=== PATIENT | female | born 1945 | race Caucasian/White ===

== ENCOUNTER 2021-11-22 16:35 | Observation (INO) ==
[2021-11-22] MEDS ORDERED: PROVENTIL NEB TX 0.083% 2.5MG/ 3ML NEB PRN (19:12)
[2021-11-22] MEDS ORDERED: ROCEPHIN 1 GRAM IV PREMIX 1 G/50 ML IV.SOLN. IV SCH (20:00)
[2021-11-22] MEDS: NS 1,000 ML IV 1,000 ML IV SCH (20:12)
[2021-11-22] MEDS: ZITHROMAX INJ 500 MG VIAL 500 MG in NS 250 ML IV 250 ML IV SCH (20:12)
[2021-11-22] MEDS: SOLU-Medrol 40 MG VIAL IVP SCH (20:12)
[2021-11-22 20:16] LABS: ABG BASE EXCESS 2.5 mmol/L (-2.0-2.0); ABG HCO3 26.3 mmol/L (22-26)
[2021-11-22 20:23] LABS: BASOPHILS # (AUTO) 0.1 X10^3/uL (0.0-0.1); EOSINOPHILS # (AUTO) 0.4 x10^3/uL (0.0-0.2); EOSINOPHILS % (AUTO) 3.6 % (0.9-2.9); HEMATOCRIT 41.2 % (36.0-47.0); LYMPHOCYTES # (AUTO) 3.3 X10^3/uL (1.3-2.9); LYMPHOCYTES % (AUTO) 29.5 % (21.0-51.0); MEAN CORPUSCULAR HEMOGLOBIN 29.9 pg (27.0-34.0); MEAN CORPUSCULAR VOLUME 88.1 fL (80.0-100.0); MEAN PLATELET VOLUME 7.5 fL (7.4-11.0); MONOCYTES % (AUTO) 9.1 % (0.0-13.0); NEUTROPHILS # (AUTO) 6.3 x10^3/uL (2.2-4.8); NEUTROPHILS % (AUTO) 56.8 % (42.0-75.0); RED BLOOD COUNT 4.67 X10^6/uL (3.5-5.4); RED CELL DISTRIBUTION WIDTH 14.5 % (11.6-16.5); WHITE BLOOD COUNT 11.1 X10^3/uL (3.6-10.0)
[2021-11-22 20:27] VITALS: BMI 30.8
[2021-11-22] MEDS ORDERED: SALINE 3% 15 ML NEB TX NEB ONE (20:27)
[2021-11-22 20:29] LABS: BLOOD UREA NITROGEN 27 mg/dL (7-18); CALCIUM 9.2 mg/dL (8.5-10.1); CARBON DIOXIDE 26.7 mmol/L (21-32); CHLORIDE 101 mmol/L (98-107); COR NA(FOR HYPERGLY) 138 mmol/L (136-145); CREATININE 0.97 mg/dL (0.55-1.02); SODIUM 138 mmol/L (136-145); eGFR NON BLACK RACES 59 (>60)
[2021-11-22] MEDS ORDERED: SALINE 3% 15 ML NEB TX ONE (20:30)
[2021-11-22 20:41] LABS: ALANINE AMINOTRANSFERASE 35 Units/L (12-78); ALBUMIN 3.8 g/dL (3.4-5.0); ALKALINE PHOSPHATASE 58 Units/L (46-116); ASPARTATE AMINO TRANSFERASE 26 Units/L (15-37)
[2021-11-22] MEDS: PROVENTIL NEB TX 0.083% 2.5MG/ 3ML NEB SCH (20:55)
--- NOTE | 2021-11-22 21:35 | RAD ---
CHEST, 1 VIEWHISTORY: PNEUMONIAStudy: AP view of the chest.Comparison:NoneFindings:The cardiomediastinal silhouette is normal. Nodular cluster of opacifications in the right midlung which may be calcified. Osseous structures demonstrate no acute abnormality. Bilateral hyperexpansion and interstitial prominence.IMPRESSION:1. Possible calcified lung nodules in the right. This may represent evidence of prior granulomatous disease however that this could be confirmed by CT if clinically indicated.2. Findings of COPD.Electronically signed by: ARMANDO OSCAR (Nov 22, 2021 21:34:33)
[2021-11-22] MEDS: ROCEPHIN VIAL 1 GRAM 1 G in NS 100 ML IV 100 ML IV SCH (22:00)
[2021-11-23] MEDS: PROVENTIL NEB TX 0.083% 2.5MG/ 3ML NEB SCH ×4 (00:31→17:31)
[2021-11-23 04:31] LABS: BASOPHILS % (AUTO) 0.4 % (0.2-1.0); EOSINOPHILS # (AUTO) 0.1 x10^3/uL (0.0-0.2); EOSINOPHILS % (AUTO) 0.6 % (0.9-2.9); HEMATOCRIT 39.9 % (36.0-47.0); HEMOGLOBIN 13.6 g/dL (12.0-16.0); LYMPHOCYTES # (AUTO) 1.6 X10^3/uL (1.3-2.9); LYMPHOCYTES % (AUTO) 16.9 % (21.0-51.0); MEAN CORPUSCULAR HEMOGLOBIN 29.9 pg (27.0-34.0); MEAN CORPUSCULAR HGB CONC 33.9 g/dL (33.0-35.0); MEAN CORPUSCULAR VOLUME 88.1 fL (80.0-100.0); MEAN PLATELET VOLUME 7.5 fL (7.4-11.0); MONOCYTES # (AUTO) 0.2 x10^3/uL (0.3-0.8); NEUTROPHILS # (AUTO) 7.8 x10^3/uL (2.2-4.8); NEUTROPHILS % (AUTO) 80.1 % (42.0-75.0); RED BLOOD COUNT 4.54 X10^6/uL (3.5-5.4); RED CELL DISTRIBUTION WIDTH 14.6 % (11.6-16.5); WHITE BLOOD COUNT 9.7 X10^3/uL (3.6-10.0)
[2021-11-23 04:42] LABS: ALANINE AMINOTRANSFERASE 32 Units/L (12-78); ALBUMIN 3.4 g/dL (3.4-5.0); ALKALINE PHOSPHATASE 55 Units/L (46-116); ASPARTATE AMINO TRANSFERASE 27 Units/L (15-37); BLOOD UREA NITROGEN 24 mg/dL (7-18); CALCIUM 8.5 mg/dL (8.5-10.1); CARBON DIOXIDE 25.6 mmol/L (21-32); CHLORIDE 100 mmol/L (98-107); COR NA(FOR HYPERGLY) 137 mmol/L (136-145); CREATININE 0.88 mg/dL (0.55-1.02); SODIUM 135 mmol/L (136-145); TOTAL PROTEIN 7.6 g/dL (6.4-8.2); eGFR NON BLACK RACES > 60 (>60)
[2021-11-23] MEDS: SOLU-Medrol 40 MG VIAL IVP SCH ×2 (05:32→13:57)
[2021-11-23] MEDS ORDERED: KLOR-CON PO PRN (05:50)
[2021-11-23] MEDS ORDERED: POTASSIUM CHL 60 MEQ/NS 0.45% 500 ML IV PRN (05:50)
[2021-11-23] MEDS ORDERED: POTASSIUM CHLORIDE LIQ 20 MEQ UDC PO PRN (05:50)
[2021-11-23] MEDS ORDERED: POTASSIUM CHL 40 MEQ/NS 0.45% 500 ML IV PRN (05:50)
[2021-11-23] MEDS ORDERED: MICRO K EXTEN CAP 10 MEQ PO PRN (05:50)
[2021-11-23] MEDS ORDERED: K-RIDER 10 MEQ/NS 100 ML 10 MEQ/100 ML BAG IV PRN (05:50)
[2021-11-23] MEDS: K-DUR TAB 20 MEQ PO PRN (06:24)
[2021-11-23] MEDS: LOVENOX INJ 40 MG SYR SC SCH (10:34)
[2021-11-23] MEDS ORDERED: TESSALON PERLES PO PRN (15:57)
[2021-11-23] MEDS ORDERED: PATIENT'S HOME MEDICATION (Dulaglutide [Trulicity] 1.5 mg/0.5 mL Pen Injector) SUBCUT SCH (16:00)
[2021-11-23] MEDS ORDERED: ALENDRONATE 70 MG PO SCH (16:00)
[2021-11-23] MEDS ORDERED: VITAMIN D (1.25MG) PO SCH (16:15)
[2021-11-23] MEDS: PLAVIX PO SCH (16:42)
[2021-11-23] MEDS: NS 1,000 ML IV 1,000 ML IV SCH ×2 (17:08→18:04)
--- NOTE | 2021-11-23 17:18 | DR.H&P ---
H&P - History & Physical for Day of: H&P Date: 11/22/21 - Chief Complaint Chief Complaint: SOB, pneumonia - History of Present Illness History of Present Illness: Patient is a 76 year old WF who is a direct admit from Dr. George office due to dyspnea and pneumonia. Patient reports she had an outpatient CXR at PCP office which revealed pneumonia. Reports dyspnea and cough for several days. Denies CP, fever, chills. Reports her spouse has been sick as well with similar issues. PMH CAD with stent, hypothyroidism, HTN, history of breast cancer (remission) and multiple other conditions. - Past Medical History Past Medical History: Coronary Artery Disease, Hypertension, Hypothyroidism - Past Surgical History Surgical History: CABG/Valve Surgery, Mastectomy - Family History Family Medical History: Diabetes Mellitus, Coronary Artery Disease - Social History Does patient currently use any type of tobacco product: No Have you used tobacco products in the last 12 months: No Type of Tobacco Use: None Does any household member use tobacco: No Alcohol Use: None Drug Use: None - Medications Home Medications: BIANCA Inhibitors Allergy (Verified 11/22/21 19:53) codeine Allergy (Verified 11/22/21 19:53) hydralazine Allergy (Verified 11/22/21 19:53) macimorelin [From Macrilen] Allergy (Verified 11/22/21 19:53) morphine Allergy (Verified 11/22/21 19:46) Proton Pump Inhibitors Allergy (Verified 11/22/21 19:53) Sulfa (Sulfonamide Antibiotics) [SULFA] Allergy (Verified 11/22/21 19:53) CONTINUE taking the following medications albuterol sulfate 2.5 mg INHALATION TID 11/22/21 [History] alendronate 70 mg PO QWEEK 11/22/21 [History] aspirin 81 mg PO DAILY 11/22/21 [History] atorvastatin 40 mg PO QHS 11/22/21 [History] azithromycin See Rx Instructions .ROUTE .COMPLEX 11/22/21 [History] benzonatate 200 mg PO TID PRN 11/22/21 [History] blood sugar diagnostic [WiLinxTouch Verio test strips] 11/22/21 [History] clopidogrel 75 mg PO ONCE 11/22/21 [History] cyclosporine [Restasis] 1 drp OPHTHALMIC (EYE) BID 11/22/21 [History] dulaglutide [Trulicity] 1.5 mg SUBCUT QWEEK 11/22/21 [History] ergocalciferol (vitamin D2) [Vitamin D2] 50,000 unit PO WEEKLY 11/22/21 [History] fenofibrate 134 mg PO HS 11/22/21 [History] lancets [OneTouch Delica Plus Lancet] 11/22/21 [History] levothyroxine 25 mcg PO DAILY 11/22/21 [History] nifedipine 30 mg PO DIRECTED 11/22/21 [History] prednisone 20 mg PO DAILY 11/22/21 [History] sotalol 80 mg PO BID 11/22/21 [History] - Review of Systems Constitutional: See HPI Eyes: See HPI ENT: See HPI Respiratory: See HPI Cardiovascular: See HPI Gastrointestinal: See HPI Genitourinary: See HPI Musculoskeletal: See HPI Skin: See HPI Neurological: See HPI - Physical Exam Vital Signs: Temperature 97.9 F Pulse Rate [Left Brachial] 52 Pulse Rate 68 Respiratory Rate 20 Blood Pressure [Right Arm] 163/78 O2 Sat by Pulse Oximetry 96 Oriented: Normal Eyes: Other (Right eye injected with drainage noted) Ear: Normal Nose: Normal Throat: Red Respiratory: Rhonchi Throughout Cardiovascular: Murmur : Normal Auscultation: Bowel Sounds: Normal Palpation: Normal Tenderness: Normal Skin: Normal Musculoskeletal: Instability (Generalized global weakness) Psychiatric: Normal Mood Description: Calm Affect: Normal Speech Pattern: Clear, Appropriate - Assessment/Plan (1) Dyspnea Status: Acute (2) Acute bronchitis Status: Acute Plan: Admit. IV abx and steroids. Cultures. duo nebs. oxygen prn. imaging and labs as ordered (3) Acute bronchitis with COPD Status: Acute (4) Acute respiratory distress Status: Acute (5) History of coronary artery disease Status: Chronic Plan: home meds. Stable - Allergies Allergies/Adverse Reactions: Allergies Allergy/AdvReac Type Severity Reaction Status Date / Time BIANCA Inhibitors Allergy Verified 11/22/21 19:53 codeine Allergy Verified 11/22/21 19:53 hydralazine Allergy Verified 11/22/21 19:53 macimorelin [From Macrilen] Allergy Verified 11/22/21 19:53 morphine Allergy Verified 11/22/21 19:46 Proton Pump Inhibitors Allergy Verified 11/22/21 19:53 Sulfa (Sulfonamide Allergy Verified 11/22/21 19:53 Antibiotics) [SULFA]
--- NOTE | 2021-11-23 17:25 | PCM.PROG ---
Progress Note - Subjective Subjective: Patient is a 76 year old WF who was admitted as per HPI. Patient reports improvement in dyspnea and resp symptoms. Patient reports right eye itching and "feels like sand" in eye. Sclera is injected and small amount of drainage to right eye with crusting. Vitals, labs, and imaging reviewed. No new concerns at present. - Past Medical Family Social History Past Med/Fam/Surg Hx: No changes since H&P Allergies: Allergies BIANCA Inhibitors Allergy (Verified 11/22/21 19:53) codeine Allergy (Verified 11/22/21 19:53) hydralazine Allergy (Verified 11/22/21 19:53) macimorelin [From Macrilen] Allergy (Verified 11/22/21 19:53) morphine Allergy (Verified 11/22/21 19:46) Proton Pump Inhibitors Allergy (Verified 11/22/21 19:53) Sulfa (Sulfonamide Antibiotics) [SULFA] Allergy (Verified 11/22/21 19:53) - Review of Systems ROS: No change since H&P - Vital Signs and I&O's Vital Signs: Temperature 97.9 F Pulse Rate [Left Brachial] 52 Pulse Rate 68 Respiratory Rate 20 Blood Pressure [Right Arm] 163/78 O2 Sat by Pulse Oximetry 96 Intake and Output: Intake & Output 11/20/21 11/21/21 11/22/21 11/23/21 23:59 23:59 23:59 23:59 Intake Total 0 / 0 2671 / 2671 Balance 0 / 0 2671 / 2671 - Physical Exam Oriented: Normal Eyes: Other (Right eye injected with drainage noted) Ear: Normal Nose: Normal Throat: Red Respiratory: Rhonchi Cardiovascular: Murmur : Normal Auscultation: Bowel Sounds: Normal Palpation: Normal Tenderness: Normal Skin: Normal Musculoskeletal: Instability (Generalized global weakness) Psychiatric: Normal Mood Description: Calm Affect: Normal Speech Pattern: Clear, Appropriate - Laboratory and Diagnostics Result Diagrams: 11/23/21 03:28 11/23/21 07:27 Labs: 11/22/21 21:05 Sputum - Expectorated Sputum Sputum Culture - Preliminary 11/22/21 21:05 Sputum - Expectorated Sputum - Final Laboratory WBC 9.7 X10^3/uL (3.6-10.0) 11/23/21 03:28 RBC 4.54 X10^6/uL (3.5-5.4) 11/23/21 03:28 Hgb 13.6 g/dL (12.0-16.0) 11/23/21 03:28 Hct 39.9 % (36.0-47.0) 11/23/21 03:28 MCV 88.1 fL (80.0-100.0) 11/23/21 03:28 MCH 29.9 pg (27.0-34.0) 11/23/21 03: MCHC 33.9 g/dL (33.0-35.0) 11/23/21 03: RDW 14.6 % (11.6-16.5) 11/23/21 03: Plt Count 287 X10^3/uL (150.0-450.0) 11/23/21 03:28 MPV 7.5 fL (7.4-11.0) 11/23/21 03:28 Neut % (Auto) 80.1 % (42.0-75.0) H 11/23/21 03:28 Lymph % (Auto) 16.9 % (21.0-51.0) L 11/23/21 03:28 Kerr % (Auto) 2.0 % (0.0-13.0) 11/23/21 03: Eos % (Auto) 0.6 % (0.9-2.9) L 11/23/21 03: Baso % (Auto) 0.4 % (0.2-1.0) 11/23/21 03:28 Neut # (Auto) 7.8 x10^3/uL (2.2-4.8) H 11/23/21 03:28 Lymph # (Auto) 1.6 X10^3/uL (1.3-2.9) 11/23/21 03:28 Kerr # (Auto) 0.2 x10^3/uL (0.3-0.8) L 11/23/21 03:28 Eos # (Auto) 0.1 x10^3/uL (0.0-0.2) 11/23/21 03:28 Baso # (Auto) 0.0 X10^3/uL (0.0-0.1) 11/23/21 03:28 Absolute Nucleated RBC 0.0 /100WBC 11/23/21 03:28 Sample Site Rbra 11/22/21 20:15 ABG pH 7.460 (7.35-7.45) H 11/22/21 20:15 ABG pCO2 37.0 mmHg (35.0-45.0) 11/22/21 20:15 ABG pO2 95.0 mmHg (80.0-100.0) 11/22/21 20:15 ABG HCO3 26.3 mmol/L (22-26) H 11/22/21 20:15 ABG O2 Saturation 98.0 % (90-100) 11/22/21 20:15 ABG Base Excess 2.5 mmol/L (-2.0-2.0) H 11/22/21 20:15 Kev Test Na 11/22/21 20:15 A-a Gradient 8.0 mmHg 11/22/21 20:15 FiO2 21.0 11/22/21 20:15 Blood Gas Comments Coleman abg well-mtf 11/22/21 20:15 Sodium 135 mmol/L (136-145) L 11/23/21 03:28 Corrected Sodium 137 mmol/L (136-145) 11/23/21 03:28 Potassium 3.6 mmol/L (3.5-5.1) 11/23/21 07:27 Chloride 100 mmol/L (98-107) 11/23/21 03:28 Carbon Dioxide 25.6 mmol/L (21-32) 11/23/21 03:28 BUN 24 mg/dL (7-18) H 11/23/21 03:28 Creatinine 0.88 mg/dL (0.55-1.02) 11/23/21 03:28 Est GFR (MDRD) Af Amer > 60 (>60) 11/23/21 03:28 Est GFR (MDRD) Non-Af > 60 (>60) 11/23/21 03:28 Glucose 196 mg/dL (65-99) H 11/23/21 03:28 Calcium 8.5 mg/dL (8.5-10.1) 11/23/21 03:28 Corrected Calcium TNP 11/23/21 03:28 Magnesium 1.8 mg/dL (1.7-2.9) 11/23/21 03:28 Total Bilirubin 0.20 mg/dL (0.2-1.0) 11/23/21 03:28 AST 27 Units/L (15-37) 11/23/21 03:28 ALT 32 Units/L (12-78) 11/23/21 03:28 Alkaline Phosphatase 55 Units/L (46-116) 11/23/21 03:28 Total Protein 7.6 g/dL (6.4-8.2) 11/23/21 03:28 Albumin 3.4 g/dL (3.4-5.0) 11/23/21 03:28 Globulin 4.2 g/dL (2.5-4.5) 11/23/21 03:28 Albumin/Globulin Ratio 0.8 Ratio (1.1-2.1) L 11/23/21 03:28 SARS-CoV-2 (PCR) Negative (NEGATIVE) 11/22/21 19:30 Influenza Type A (PCR) Negative (NEGATIVE) 11/22/21 19:30 Influenza Type B (PCR) Negative (NEGATIVE) 11/22/21 19:30 RSV (PCR) Negative (NEGATIVE) 11/22/21 19:30 SARS-CoV-2 (PCR) Cancelled 11/22/21 19:25 - Plan (1) Dyspnea Status: Acute (2) Acute bronchitis Status: Acute Plan: Admit. IV abx and steroids. Cultures. duo nebs. oxygen prn. imaging and labs as ordered (3) Acute bronchitis with COPD Status: Acute (4) Acute respiratory distress Status: Acute (5) History of coronary artery disease Status: Chronic Plan: home meds. Stable (6) Conjunctivitis of right eye Status: Acute Plan: Poly/trim drops
[2021-11-23] MEDS: BETAPACE AF PO SCH (20:42)
[2021-11-23] MEDS: ROCEPHIN VIAL 1 GRAM 1 G in NS 100 ML IV 100 ML IV SCH (20:43)
[2021-11-23] MEDS: ZITHROMAX INJ 500 MG VIAL 500 MG in NS 250 ML IV 250 ML IV SCH (20:43)
[2021-11-23] MEDS: CYCLOSPORINE 0.05% OP SCH (20:57)
[2021-11-23] MEDS ORDERED: PROCARDIA XL PO SCH (21:00)
[2021-11-23] MEDS ORDERED: LIPITOR TAB 40 MG PO SCH (21:00)
[2021-11-23] MEDS ORDERED: FENOFIBRATE 120 MG PO SCH (21:00)
[2021-11-23] MEDS ORDERED: PROVENTIL NEB TX 0.083% 2.5MG/ 3ML IN SCH (22:00)
[2021-11-23 23:07] LABS: BILIRUBIN,URINE NEGATIVE (NEGATIVE); BLOOD/HEMOGLOBIN,URINE NEGATIVE (NEGATIVE); GLUCOSE, URINE 4+ (NEGATIVE); KETONES,URINE NEGATIVE (NEGATIVE); LEUKOCYTE ESTERASE ,URINE NEGATIVE (NEGATIVE); NITRITES,URINE NEGATIVE (NEGATIVE); PROTEIN,URINE NEGATIVE (NEGATIVE); UROBILINOGEN,URINE NORMAL (NORMAL)
[2021-11-23 23:11] LABS: APPEARANCE,URINE CLEAR (CLEAR); COLOR,URINE STRAW (YELLOW)
[2021-11-24] MEDS: NS 1,000 ML IV 1,000 ML IV SCH (03:10)
[2021-11-24 04:27] LABS: BASOPHILS % (AUTO) 0.1 % (0.2-1.0); EOSINOPHILS % (AUTO) 0.1 % (0.9-2.9); HEMATOCRIT 39.4 % (36.0-47.0); HEMOGLOBIN 13.2 g/dL (12.0-16.0); LYMPHOCYTES # (AUTO) 3.2 X10^3/uL (1.3-2.9); MEAN CORPUSCULAR HEMOGLOBIN 29.5 pg (27.0-34.0); MEAN CORPUSCULAR HGB CONC 33.4 g/dL (33.0-35.0); MEAN CORPUSCULAR VOLUME 88.4 fL (80.0-100.0); MEAN PLATELET VOLUME 7.6 fL (7.4-11.0); MONOCYTES # (AUTO) 1.4 x10^3/uL (0.3-0.8); MONOCYTES % (AUTO) 8.3 % (0.0-13.0); NEUTROPHILS # (AUTO) 12.3 x10^3/uL (2.2-4.8); NEUTROPHILS % (AUTO) 72.5 % (42.0-75.0); RED BLOOD COUNT 4.46 X10^6/uL (3.5-5.4); RED CELL DISTRIBUTION WIDTH 14.7 % (11.6-16.5); WHITE BLOOD COUNT 16.9 X10^3/uL (3.6-10.0)
[2021-11-24 05:12] LABS: ALANINE AMINOTRANSFERASE 34 Units/L (12-78); ALBUMIN 3.2 g/dL (3.4-5.0); ALKALINE PHOSPHATASE 59 Units/L (46-116); ASPARTATE AMINO TRANSFERASE 24 Units/L (15-37); BLOOD UREA NITROGEN 18 mg/dL (7-18); CALCIUM 8.3 mg/dL (8.5-10.1); CARBON DIOXIDE 23.5 mmol/L (21-32); CHLORIDE 102 mmol/L (98-107); COR CA(FOR HYPOALB) 8.9 mg/dL (8.5-10.1); COR NA(FOR HYPERGLY) 135 mmol/L (136-145); CREATININE 0.86 mg/dL (0.55-1.02); SODIUM 134 mmol/L (136-145); TOTAL PROTEIN 7.5 g/dL (6.4-8.2); eGFR NON BLACK RACES > 60 (>60)
[2021-11-24] MEDS ORDERED: MAGNESIUM SULFATE 1 GRAM/100 mL PREMIX 1 G/100 ML BAG IV PRN (05:28)
[2021-11-24 05:54] LABS: ABG BASE EXCESS 0.3 mmol/L (-2.0-2.0); ABG HCO3 23.1 mmol/L (22-26)
[2021-11-24] MEDS: PROVENTIL NEB TX 0.083% 2.5MG/ 3ML NEB SCH ×3 (06:03→11:15)
--- NOTE | 2021-11-24 06:29 | RAD ---
HISTORYFollow-up pneumonia, COPDSTUDYChest AP [id number]/13/2022FINDINGSPati ent is status post aortic valve replacement. Heart size is normal. Ilana are normal. Lungs are well inflated and free of acute alveolar infiltrates. Multiple nodular densities are again identified in the right perihilar region possibly old granulomas. This could be confirmed with chest CT. No pleural effusion or pneumothorax is identified. Bony thorax is unremarkable.IMPRESSIONNo acute infiltratesCluster of nodular densities in the right perihilar region possibly representing calcified granulomas. They are unchanged.Electronically signed by: MALATHI LORENZANA (Nov 24, 2021 06:27:23)
[2021-11-24] MEDS: BETAPACE AF PO SCH (08:54)
[2021-11-24] MEDS: LOVENOX INJ 40 MG SYR SC SCH (08:54)
[2021-11-24] MEDS: PLAVIX PO SCH (08:55)
[2021-11-24] MEDS: K-DUR TAB 20 MEQ PO PRN ×2 (08:55→13:49)
[2021-11-24] MEDS: CYCLOSPORINE 0.05% OP SCH (08:56)
[2021-11-24] MEDS ORDERED: ASPIRIN EC 81 MG PO SCH (09:00)
[2021-11-24] MEDS ORDERED: SYNTHROID 25 mcg TAB PO SCH (09:00)
[2021-11-24] MEDS ORDERED: PROCARDIA XL PO SCH (09:00)
[2021-11-24 12:05] VITALS: BP 162/70
[2021-11-24] MEDS ORDERED: TRICOR TAB 145 MG PO SCH (21:00)
--- NOTE | 2021-12-02 11:50 | PCM.DCPLAN ---
Discharge Plan - Discharge Plan Hospital Course: Admit Date11/22/21 Discharge Date11/24/21 DOS11/24/21 Admit diagnosis(1) Dyspnea (2) Acute bronchitis (3) Acute bronchitis with COPD (4) Acute respiratory distress (5) History of coronary artery disease Discharge diagnosis(1) Dyspnea (2) Acute bronchitis (3) Acute bronchitis with COPD (4) Acute respiratory distress (5) History of coronary artery disease (6) Conjunctivitis of right eye Hospital Course Patient is a 76 year old WF who is a direct admit from Dr. George office due to dyspnea and pneumonia. Patient reports she had an outpatient CXR at PCP office which revealed pneumonia. Reports dyspnea and cough for several days. Denies CP, fever, chills. Reports her spouse has been sick as well with similar issues. PMH CAD with stent, hypothyroidism, HTN, history of breast cancer (remission) and multiple other conditions. CXR was negative, COVID negative, Labs unremarkable. Patient was treated with IV abx and steroids. Cultures negative. Patient was discharged home to follow up with pcp on po abx. Symptoms resolved. Patient was treated with eye drops as well for conjunctivitis. Discharge time spent > 35 mins Disposition: 01 HOME, SELF-CARE Condition: Stable Health Concerns: Post Hospitalization: new medications and changes needed to prevent readmission or further decline. Pt educated and given instructions on all concerns. Care Plan Goals: Problem: Pain/Alteration in Comfort Goal: Improve/ Resolve Pain; Achieve Pain Tolerance Instructions: Take pain medications as prescribed. Contact your primary care provider if your pain is unrelieved or worsens. Follow up with primary care provider as directed. Plan of Treatment: Continue with present treatment and follow up plan. Pt is to keep follow up appointment as instructed and take medications as ordered. Prescriptions: New levofloxacin 250 mg Tablet 250 mg PO Q24H Qty: 7 RF: 0 Transmission Status: [id number] Continued albuterol sulfate 2.5 mg /3 mL (0.083 %) Solution For Nebulization 2.5 mg INHALATION TID alendronate 70 mg Tablet 70 mg PO QWEEK aspirin 81 mg Tablet 81 mg PO DAILY atorvastatin 40 mg Tablet 40 mg PO QHS azithromycin 250 mg Tablet See Rx Instructions .ROUTE .COMPLEX benzonatate 200 mg Capsule 200 mg PO TID PRN clopidogrel 75 mg Tablet 75 mg PO ONCE cyclosporine [Restasis] 0.05 % Dropperette 1 drp OPHTHALMIC (EYE) BID ergocalciferol (vitamin D2) 25,000 unit Capsule 50,000 unit PO WEEKLY fenofibrate 120 mg Tablet 134 mg PO HS levothyroxine 25 mcg Tablet 25 mcg PO DAILY nifedipine 30 mg tablet extended release 24 hr 30 mg PO QAM nifedipine 30 mg tablet extended release 24 hr 60 mg PO HS prednisone 20 mg Tablet 20 mg PO DAILY sotalol 80 mg Tablet 80 mg PO BID Trulicity 1.5 mg/0.5 mL Pen Injector 1.5 mg SUBCUT QWEEK (DME) lancets [OneTouch Delica Plus Lancet] 33 gauge Misc (DME) OneTouch Verio test strips Strip - Orders to Discharge Patient Discharge Orders: Discharge (Routine); Ordered 11/24/21 Ordered By: DENI FIGUEROA - Follow ups/Referrals Follow ups/Referrals: DENI FIGUEROA [Primary Care Provider] - 11/26/21 9:45 am - Instructions Instructions: Shortness of Breath, Adult, [id number], Viral Respiratory Infection, Pezp-[id number], Acute Bronchitis, Adult, [id number]-lv-[id number], Cough, Adult, Eating Plan for Chronic Obstructive Pulmonary Disease, COPD and Physical Activity Forms: Excuse From Work or School, Precautions for COVID19, [facility], Patient Portal, Social Distancing Print Language: [place] - Patient Education Addl Reference Links: Dyspnea [email or web address] [email or web address]&language=en&patientPerson.administrativeGenderCode.c= F&patientPerson.administrativeGenderCode.dn=Female&age.v.v=76&age.v.u=a&performe r=PROV&informationRecipient=PAT&performer.languageCode.c=en&mainSearchCriteria.v .t=[id number]&mainSearchCriteria.v.cs=2.1 [id number]&mainSearchCriteria.v.dn=Dyspnea&mainSearchCriteria.v.c9=965. 09&mainSearchCriteria.v.cs1=[id number]&mainSearchCriteria.v.dn1=Dys pnea&mainSearchCriteria.v.c2=R06.00&main SearchCriteria.v.cs2=[id number]&mainSearchCriteria.v.dn2=Dyspnea&f=1 [id number]
== END 2021-11-24 15:30 | disposition home or self-care (01) ==
LOC: MED/SURG
PROVIDERS: ADMIT Internal Medicine; ATTEND Internal Medicine
DX: J20.9 Acute bronchitis, unspecified; R06.03 Acute respiratory distress; R26.89 Other abnormalities of gait and mobility; E11.65 Type 2 diabetes mellitus with hyperglycemia; I10 Essential (primary) hypertension; H10.31 Unspecified acute conjunctivitis, right eye; I25.10 Atherosclerotic heart disease of native coronary artery without angina pectoris; J44.9 Chronic obstructive pulmonary disease, unspecified; R06.02 Shortness of breath; Z20.822 Contact with and (suspected) exposure to COVID-19; Z85.3 Personal history of malignant neoplasm of breast